=== PATIENT | female | born 1955 | race Hispanic/Latino ===

== ENCOUNTER 2016-09-15 17:03 | Emergency (ER) | payer OTHER ==
[~2016-09-15] VITALS: Ht 162.6 cm; Wt 63.5 kg
--- NOTE | 2016-09-15 17:58 | ED MVC/FALL/TRAUMA COMPLAINT ---
History of Present Illness General Chief Complaint: Fall Stated Complaint: FALL,LUMP ON FOREHEAD, R KNEE PAIN, Source: patient, family Exam Limitations: no limitations Vital Signs & Intake/Output Vital Signs & Intake/Output ED Intake and Output 09/16 0000 09/15 1200 Intake Total 0 Output Total Balance 0 Intake, Oral 0 Patient 140 lb Weight Allergies Coded Allergies: Penicillins (HIVES ALL OVER 09/15/16) Reconcile Medications Amlodipine Bes/Olmesartan Med (Alexsander 5-20 MG Tablet) 5 MG-20 MG TABLET 1 TAB PO DAILY BP (Reported) Dapagliflozin Propanediol (Farxiga) 5 MG TABLET 1 TAB PO DAILY DM (Reported) Triage Note: RECEIVED 61 YO FEMALE C/O TRIPPED ON SIDEWALK HOLDING GRAND-DAUGHTER, AND HIT HER FOREHEAD ON GROUND. CONTUSION TO RIGHT FOREHEAD AND PT ALSO C/O RIGHT KNEE PAIN. OCCURED ABOUT 2 PM TODAY Triage Nurses Notes Reviewed? yes HPI: Patient presents for evaluation of injury sustained status post fall prior to arrival. Patient states that while she was carrying her granddaughter she tripped over a curb falling onto the pavement. She denies loss of consciousness but now complains of moderate right forehead pain (aching) and tenderness and swelling with abrasion. In addition she scraped her knees and her right little finger. symptoms consant since abrubt onset during the fall, continue in ED. Past History Travel History Traveled to [place] past 21 day No Medical History Any Pertinent Medical History? 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 Psychosocial History What is your primary language Cymro Tobacco Use: Never used Family History Hx Contributory? No Review of Systems Review of Systems Constitutional: Reports: no symptoms. Eyes: Reports: no symptoms. Ears, Nose, Throat, Mouth: Reports: no symptoms. Respiratory: Reports: no symptoms. Cardiovascular: Reports: no symptoms. Gastrointestinal/Abdominal: Reports: no symptoms. Genitourinary: Reports: no symptoms. Musculoskeletal: Reports: see HPI. Skin: Reports: no symptoms. Neurological/Psychological: Reports: no symptoms. All Other Systems: Reviewed and Negative Physical Exam Physical Exam General Appearance: see below Comments: gen: wn, wd, no acute resp distress head: nc, abrasion with mild sts of right forehead eyes: normal inspection, no periorbital ecchy ears: normal inspection, no penny sign nose: normal inspection throat/mouth: moist mucosa neck: supple, from, no goiter, nt heart: rrr, no mrg lungs: cta bilaterally with normal air entry chest: nt abd: soft, nd, normal bowel sounds, nontender back: normal range of motion ext: normal range of motion, no cyanosis, clubbing or edema, abrasion right little finger, mild knee abrasions bilaterally skin: warm and dry circulatory: normal radial pulses neuro: cn 2-12 grossly intact, speech clear psych: calm, cooperative, no apparent delusion, hallucinations or pressured speech pelvis: stable and nt Core Measures ACS in differential dx? No Severe Sepsis Present: No Septic Shock Present: No Progress Differential Diagnosis: HEAD AND CERVICAL SPINE TRAUMA Plan of Care: Orders Procedure Date/time Status CT HEAD WO IV CONTRAST 09/[address] CERV SPINE WO IV CONTRAST 09/15 1756 Active Diagnostic Imaging: Discussed w/RAD: CT Scan. Radiology Impression: PATIENT: ROMULO GARCIA PRESENT AGE: 61 PATIENT ACCOUNT NO: [id number] : 56 LOCATION: [facility] ORDERING PHYSICIAN: BARRETT HOPKINS MD SERVICE DATE: 09/15/16 EXAM TYPE: CAT - CT CERV SPINE WO IV CONTRAST; CT HEAD WO IV CONTRAST EXAMINATION: CT HEAD AND CERVICAL SPINE. CLINICAL INFORMATION: Right forehead abrasion status post fall. COMPARISON: No relevant prior imaging available. TECHNIQUE: Casket Assembler images were obtained. A CT acquisition of the head and cervical spine was performed without intravenous administration of contrast. Data was reformatted into multiplanar images at the acquisition workstation. DLP: 838.47 mGy-cm. FINDINGS: Head: There is no acute intracranial hemorrhage or abnormal extra-axial collection. No intracranial mass effect or midline shift. Lateral and third ventricles are normal. No hydrocephalus. A few ill-defined foci of hypoattenuation are visualized within the periventricular white matter that most likely represent a chronic manifestation of small vessel ischemia. [place]-white matter differentiation is otherwise preserved and there is no evidence of acute territorial infarct. The calvarium and skull base are intact. Mastoid air cells and middle ear cavities are well aerated. Visualized paranasal sinuses are well aerated. Cervical spine: There is nonspecific reversal of the cervical lordosis. Vertebral alignment is otherwise maintained sagittal dimension. Vertebral body heights are preserved. No evidence of acute fracture. No abnormal prevertebral soft tissue swelling. There is mild degenerative disc space narrowing at C5-C6 and C6-C7. Asymmetric uncovertebral joint spurring at C6-C7 causes moderate bilateral neuroforaminal encroachment, greater on the left. No more than mild symmetric neuroforaminal encroachment at C5-C6. Grossly there is no evidence of canal compromise. Lung apices are clear. Soft tissues of the neck including the thyroid gland are unremarkable. IMPRESSION: Head: No acute intracranial hemorrhage. A few chronic small vessel ischemic changes are visualized within the periventricular white matter. Cervical spine: No acute cervical spine fracture. Degenerative spondylosis at C5-C6 and C6-C7. DICTATED BY: NE FERNÁNDEZ MD DATE/TIME DICTATED:09/15/161813 FOURTH MATE:RASHIDA DATE/ TIME TRANSCRIBED:09/15/161813 CONFIDENTIAL, DO NOT COPY WITHOUT APPROPRIATE AUTHORIZATION. <Electronically signed in Other Vendor System> SIGNED BY: NE FERNÁNDEZ MD 09/15/16 1823 Departure Departure Disposition: HOME OR SELF CARE Condition: Stable Clinical Impression Primary Impression: Minor head injury Qualifiers: Encounter type: initial encounter Qualified Code: S00.90XA - Unspecified superficial injury of unspecified part of head, initial encounter Secondary Impressions: Abrasion of finger of right hand Qualifiers: Encounter type: initial encounter Qualified Code: S60.419A - Abrasion of unspecified finger, initial encounter Forehead abrasion Qualifiers: Encounter type: initial encounter Qualified Code: S00.81XA - Abrasion of other part of head, initial encounter Knee abrasion Qualifiers: Encounter type: initial encounter Laterality: unspecified laterality Qualified Code: S80.219A - Abrasion, unspecified knee, initial encounter Referrals: ANISH BRITO,SIMRAN Bowen (PCP/Family) Additional Instructions: Eqiy-jxe-iehqbrk pain medication as required. Ice to any areas of swelling over the next 2 days. Follow-up with your primary care physician in 48 hours for reevaluation. Return if any concerns or sudden worsening. Please note that there might be incidental findings in your evaluation that are unrelated to the current emergency department visit. Please notify your primary care doctor about this emergency department visit in order to obtain and review all of the testing performed so that these incidental findings can be monitored as needed. If you had an x-ray performed, please understand that some fractures may not be seen on the initial set of x-rays. If your symptoms persist you might need a repeat set of x-rays to check for such a fracture. If you had a laceration evaluated, please understand that foreign bodies such as glass or wood may not be visible to the naked eye or on plain x-rays. If the wound becomes red, swollen, increasingly more painful or if there is any drainage from the wound, please have it reevaluated by a physician for the possibility of a retained foreign body. Thank you for choosing the [facility] Emergency Department for your care. It was a pleasure to serve you today. Barrett Hopkins M.D. [facility] Departure Forms: Customer Survey General Discharge Information
--- NOTE | 2016-09-15 18:23 | CT SCAN REPORT ---
EXAMINATION: CT HEAD AND CERVICAL SPINE. CLINICAL INFORMATION: Right forehead abrasion status post fall. COMPARISON: No relevant prior imaging available. TECHNIQUE: Follow Up Rep images were obtained. A CT acquisition of the head and cervical spine was performed without intravenous administration of contrast. Data was reformatted into multiplanar images at the acquisition workstation. DLP: 838.47 mGy-cm. FINDINGS: Head: There is no acute intracranial hemorrhage or abnormal extra-axial collection. No intracranial mass effect or midline shift. Lateral and third ventricles are normal. No hydrocephalus. A few ill-defined foci of hypoattenuation are visualized within the periventricular white matter that most likely represent a chronic manifestation of small vessel ischemia. [place]-white matter differentiation is otherwise preserved and there is no evidence of acute territorial infarct. The calvarium and skull base are intact. Mastoid air cells and middle ear cavities are well aerated. Visualized paranasal sinuses are well aerated. Cervical spine: There is nonspecific reversal of the cervical lordosis. Vertebral alignment is otherwise maintained sagittal dimension. Vertebral body heights are preserved. No evidence of acute fracture. No abnormal prevertebral soft tissue swelling. There is mild degenerative disc space narrowing at C5-C6 and C6-C7. Asymmetric uncovertebral joint spurring at C6-C7 causes moderate bilateral neuroforaminal encroachment, greater on the left. No more than mild symmetric neuroforaminal encroachment at C5-C6. Grossly there is no evidence of canal compromise. Lung apices are clear. Soft tissues of the neck including the thyroid gland are unremarkable. IMPRESSION: Head: No acute intracranial hemorrhage. A few chronic small vessel ischemic changes are visualized within the periventricular white matter. Cervical spine: No acute cervical spine fracture. Degenerative spondylosis at C5-C6 and C6-C7.
[2016-09-15] MEDS ORDERED: AZOR 5-20 MG T1 EACH PO (18:52)
[2016-09-15] MEDS ORDERED: FARXIGA5 M1 PO (18:52)
[2016-09-15 18:58] VITALS: BP 124/70
== END 2016-09-15 18:58 ==
LOC: ERH 17:03
DX: S09.90XA Unspecified injury of head, initial encounter (principal); S00.81XA Abrasion of other part of head, initial encounter; S80.211A Abrasion, right knee, initial encounter; S80.212A Abrasion, left knee, initial encounter; W10.1XXA Fall (on)(from) sidewalk curb, initial encounter; Y93.01 Activity, walking, marching and hiking; Y92.480 Sidewalk as the place of occurrence of the external cause

== ENCOUNTER 2016-12-04 17:42 | Emergency (ER) | payer OTHER ==
[~2016-12-04] VITALS: Ht 152.4 cm; Wt 63.5 kg
[~2016-12-04 17:42] MED LIST: AZOR 5-20 MG T1 EACH PO; FARXIGA5 M1 PO
[2016-12-04 17:46] VITALS: BP 122/81
--- NOTE | 2016-12-04 18:48 | RADIOLOGY REPORT ---
EXAMINATION: XR KNEE, LEFT CLINICAL INFORMATION: Left knee pain after fall. COMPARISON: None TECHNIQUE: Four views of the left knee. FINDINGS: Bones have normal alignment. No acute fracture, subluxation or joint effusion. There is mild narrowing of medial tibiofemoral joint space with marginal osteophyte formation. Also, a subchondral cyst is observed at the posterior third of the medial femoral condyle. No intra-articular ossific body. IMPRESSION: 1. No acute fracture or malalignment at the left knee. 2. Jwlt-jy-cskzeust osteoarthritis of the medial tibiofemoral compartment.
--- NOTE | 2016-12-04 19:00 | ED UPPER/LOWER EXTREMITY COMPL ---
History of Present Illness General Chief Complaint: Lower Extremity Injury Stated Complaint: LEFT KNEE PAIN, S/P FALL Source: patient Exam Limitations: no limitations Vital Signs & Intake/Output Vital Signs & Intake/Output Vital Signs Date Time Temp Pulse Resp B/P B/P Pulse O2 O2 Flow FiO2 Mean Ox Delivery Rate 12/04 1746 98.7 99 18 122/81 96 Room Air Allergies Coded Allergies: Penicillins (HIVES ALL OVER 09/15/16) Reconcile Medications Amlodipine Bes/Olmesartan Med (Alexsander 5-20 MG Tablet) 5 MG-20 MG TABLET 1 TAB PO DAILY BP (Reported) Dapagliflozin Propanediol (Farxiga) 5 MG TABLET 1 TAB PO DAILY DM (Reported) Oxycodone HCl/Acetaminophen (Percocet 5-325 MG Tablet) 5 MG-325 MG TABLET 1-2 TAB PO Q6P PRN PAIN Triage Note: 61 Y/O FEMALE C/O L KNEE PAIN S/P FALL; REQUESTING XRAY. Triage Nurses Notes Reviewed? yes HPI: Patient was walking 2 days ago when she tripped on a curb and fell and landed on her left knee. Since then she has been having pain to the anterior portion of her knee that increases with ambulation. No radiation of the pain. The pain is throbbing in nature. She rates the pain as 7 out of 10. Patient has taken Naprosyn without relief. Patient denies any other injury. Past History Travel History Traveled to [place] past 21 day No Medical History Any Pertinent Medical History? 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 Psychosocial History What is your primary language Nepali Tobacco Use: Never used Family History Hx Contributory? No Review of Systems Review of Systems Constitutional: Reports: no symptoms. Respiratory: Reports: no symptoms. Cardiovascular: Reports: no symptoms. Gastrointestinal/Abdominal: Reports: no symptoms. Musculoskeletal: Reports: see HPI, joint pain. Neurological/Psychological: Reports: no symptoms. Immunological: Reports: no symptoms. Physical Exam Physical Exam General Appearance: well developed/nourished, alert, awake, moderate distress Head: atraumatic, normal appearance Eyes: Bilateral: PERRL, EOMI. Cardiovascular/Respiratory: normal breath sounds, normal peripheral pulses, regular rate/rhythm Knee Left: normal range of motion, normal inspection, soft tissue tenderness Knee Ligaments Left: STABLE Neurologic/Tendon: normal sensation, normal motor functions, normal tendon functions Progress Differential Diagnosis: dislocation, fracture, sprain Plan of Care: Orders Procedure Date/time Status Durable Medical Equipment 12/05 1903 Active Diagnostic Imaging: Viewed by Me: Radiology Read. Discussed w/RAD: Radiology Read. Radiology Impression: PATIENT: ROMULO GARCIA PRESENT AGE: 61 PATIENT ACCOUNT NO: [id number] : 56 LOCATION: [facility] ORDERING PHYSICIAN: RADHA CASTAÑEDA MD SERVICE DATE: 12/04/16 EXAM TYPE: RAD - XRY-KNEE COMPLETE LEFT EXAMINATION: XR KNEE, LEFT CLINICAL INFORMATION: Left knee pain after fall. COMPARISON: None TECHNIQUE: Four views of the left knee. FINDINGS: Bones have normal alignment. No acute fracture, subluxation or joint effusion. There is mild narrowing of medial tibiofemoral joint space with marginal osteophyte formation. Also, a subchondral cyst is observed at the posterior third of the medial femoral condyle. No intra-articular ossific body. IMPRESSION: 1. No acute fracture or malalignment at the left knee. 2. Mild-to- moderate osteoarthritis of the medial tibiofemoral compartment. DICTATED BY: AMPARO QUEEN MD DATE/TIME DICTATED:12/04/161842 PRODUCE LABORER:RASHIDA DATE/TIME TRANSCRIBED:12/04/161842 CONFIDENTIAL, DO NOT COPY WITHOUT APPROPRIATE AUTHORIZATION. <Electronically signed in Other Vendor System> SIGNED BY: AMPARO QUEEN MD 12/04/161847 Departure Departure Disposition: HOME OR SELF CARE Condition: Stable Clinical Impression Primary Impression: Contusion of left knee Referrals: ANISH BRITO,SIMRAN Bowen (PCP/Family) HILDA BRITO,ELLI Additional Instructions: FOLLOW UP WITH DR. NICOLAS WEAR SPLINT FOR COMFORT TAKE PERCOCET NEEDED FOR PAIN. YOU CANNOT DRIVE AFTER TAKING PAIN MEDICATION. RETURN FOR ANY CONCERNS Departure Forms: Customer Survey General Discharge Information Prescriptions: Current Visit Scripts Oxycodone HCl/Acetaminophen (Percocet 5-325 MG Tablet) 1-2 TAB PO Q6P PRN PAIN #20 TAB
[2016-12-04] MEDS ORDERED: PERCOCET 5-3251 EACH PO (19:06)
== END 2016-12-04 19:13 ==
LOC: ERH 17:42
DX: S80.02XA Contusion of left knee, initial encounter (principal); W18.09XA Striking against other object with subsequent fall, initial encounter; Y92.9 Unspecified place or not applicable; Y93.9 Activity, unspecified
CPT/HCPCS: 73562-LT

== ENCOUNTER 2017-07-24 10:46 | Emergency (ER) | payer OTHER ==
[~2017-07-24 10:46] MED LIST changes: +PERCOCET 5-3251 EACH PO
[2017-07-24] MEDS ORDERED: MUCINEX1200 M1 PO (13:12)
[2017-07-24] MEDS ORDERED: FLOVENT HFA12 G1 INH (13:12)
--- NOTE | 2017-07-24 13:12 | ED INFLUENZA/URI COMPLAINT ---
History of Present Illness General Chief Complaint: Wheezing/Asthma Stated Complaint: ASTHMA SYMPTOMS Source: patient Exam Limitations: no limitations Vital Signs & Intake/Output Vital Signs & Intake/Output Vital Signs Date Time Temp Pulse Resp B/P B/P Pulse O2 O2 Flow FiO2 Mean Ox Delivery Rate 07/24 1132 97.6 102 18 142/93 98 Room Air Allergies Coded Allergies: Penicillins (HIVES ALL OVER 09/15/16) Reconcile Medications Dapagliflozin Propanediol (Farxiga) 5 MG TABLET 1 TAB PO DAILY DM (Reported) Fluticasone Propionate (Flovent Hfa) 110 MCG/ACTUATION AER.W.ADAP 2 PUF INH BID ASTHMA Guaifenesin (Mucinex) 1,200 MG TAB.ER.12H 1 TAB PO BID PRN COUGH Triage Note: PT IS LATVIAN SPEAKING. PT TO ED C/O ASTHMA EXACERBATION. TOOK 2 PUFFS ON HER INHALER WITH NO RELIEF. O2 SAT 98% ON RA Triage Nurses Notes Reviewed? yes Onset: Abrupt Duration: week(s):, better, continues in ED Severity: severe HPI: Patient presents for evaluation of cough. Patient states that she has a history of asthma and he typically has difficulties when the neighbors downstairs begin smoking marijuana and tobacco. She states that this triggers her asthma and a lot of coughing. She is making arrangements to move out of her current apartment. She has been taking her pro-air with some improvement but has run out of her cough medication. Patient denies any associated fever or cold symptoms. There is been no associated chest pain or leg swelling. Past History Travel History Traveled to [place] past 21 day No Medical History Any Pertinent Medical History? 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 Psychosocial History What is your primary language Cymro Tobacco Use: Never used Family History Hx Contributory? No Review of Systems Review of Systems Constitutional: Reports: no symptoms. EENTM: Reports: no symptoms. Respiratory: Reports: see HPI. Cardiovascular: Reports: no symptoms. GI: Reports: no symptoms. Genitourinary: Reports: no symptoms. Musculoskeletal: Reports: no symptoms. Skin: Reports: no symptoms. Neurological/Psychological: Reports: no symptoms. Hematologic/Endocrine: Reports: no symptoms. Immunologic/Allergic: Reports: no symptoms. All Other Systems: Reviewed and Negative Physical Exam Physical Exam Ears, Nose, Throat: SEE BELOW Comments: Gen.: Well-nourished, well-developed, no acute respiratory distress. Very conversant. Occasional dry cough. Head: Normocephalic, atraumatic. Eyes: Normal inspection bilaterally Ears: Normal inspection bilaterally Nose: Normal inspection Throat/mouth : Moist mucosa Neck: Supple, full range of motion, no goiter Heart: Regular rate and rhythm, no murmurs rubs or gallops Lungs: Clear to auscultation bilaterally with normal air entry Chest: Nontender Back: Normal range of motion Abdomen: Soft, nontender, nondistended, normal bowel sounds Extremities: Normal range of motion grossly, equal radial pulses, no cyanosis clubbing or edema Neurologic: Cranial nerves grossly intact, speech is clear Skin: warm and dry Psychiatric: Calm, cooperative, no apparent delusions or hallucinations Core Measures Sepsis Present: No Sepsis Focused Exam Completed? No Progress Differential Diagnosis: ASTHMA, FUME EXPOSURE Plan of Care: SEE D/C INSTRUCTIONS Initial ED EKG: none Departure Departure Disposition: HOME OR SELF CARE Condition: Stable Clinical Impression Primary Impression: Cough Referrals: Barry BRITO,Ned Bowen (PCP/Family) Additional Instructions: Continue your pro-air as prescribed. Add Flovent. Cough medication prescription as needed. Follow-up with your primary care physician on Thursday for reevaluation. Return if any concerns or sudden worsening. Thank you for choosing the [facility] Emergency Department for your care. It was a pleasure to serve you today. Barrett Hopkins M.D. [facility] Departure Forms: Customer Survey General Discharge Information Prescriptions: Current Visit Scripts Fluticasone Propionate (Flovent Hfa) 2 PUF INH BID #1 INHAL Guaifenesin (Mucinex) 1 TAB PO BID PRN COUGH #30 TAB
[2017-07-24 13:17] VITALS: BP 140/80
== END 2017-07-24 13:18 ==
LOC: ERH 10:46
DX: R05 Cough (principal)